=== PATIENT | female | born 2005 | race Caucasian/White ===

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

== ENCOUNTER 2023-02-04 16:06 | Emergency (ER) | payer BC, SELFPAY ==
[2023-02-04 16:20] VITALS: BP 133/77; PULSE 95; RESP 20; TEMP 37; O2SAT 100; BMI 21.9
--- NOTE | 2023-02-04 16:33 | EXP.UTC ---
Discharge Plan Disposition Patient Disposition: Home, Self-Care Condition: Good Prescriptions Prescriptions: No Action norethindrone-e.estradiol-iron [Christiano Fe 12/11 (28)] 1 mg-20 mcg (21)/75 mg (7) tablet 1 tab PO DAILY Caplyta 21 mg capsule 21 mg PO DAILY Qty: 30 2RF doxycycline hyclate [doxycycline hyclate] 100 mg capsule 100 mg PO Q12 10 Days Qty: 20 0RF fluconazole [Diflucan] 150 mg tablet 150 mg PO ONCE Qty: 1 2RF Referrals Follow up/Referrals: Karley Renteria PA [Primary Care Provider] - See instructions Activity Restrictions/Add. Instructions Additional Instructions/Restrictions: Follow up with your retail helper or primary care physician for the results. Call here or return for any issues or worries. GO TO THE ER FOR ANY WORSENING SYMPTOMS OR CONCERNS Clinical Impressions Clinical Impression: Vaginal discharge Instructions Patient Instructions: DI for Vaginal Discharge Discharge ED Provider: Prashant Price [facility] General Stated complaint: Possible BV infection Time Seen by Provider: 02/04/23 16:32 History of Present Illness Provider Complaint: She states that she has an intermittent vaginal discharge with fishy odor of her vagina. Related Data Home Medications Medication Instructions Recorded Confirmed norethindrone 1 mg-ethinyl 1 tab PO DAILY control 01/19/22 08/24/22 estradiol 20 mcg (21)-iron 75 mg (7) tablet (Christiano Fe 12/11 ()) Previous Rx's Medication Instructions Recorded lumateperone 21 mg capsule 21 mg PO DAILY #30 caps 08/24/22 (Caplyta) doxycycline hyclate 100 mg capsule 100 mg PO Q12 10 days #20 caps 11/30/22 fluconazole 150 mg tablet 150 mg PO ONCE #1 tab 11/30/22 (Diflucan) Allergies Allergy/AdvReac Type Severity Reaction Status Date / Time No Known Allergies Allergy Verified 02/04/23 16:41 [facility] Disclaimer: The information contained in this section may have been updated after the patient was seen, as this information can be updated by other users. Medical History Anxiety and depression Bipolar disorder Social History Smoking Status: Never smoker alcohol intake: never substance use type: denies use current occupational status: other Travel in the last 8 weeks: None household members: family housing: house ROS Obtained: Yes All systems reviewed & no additional complaints except as documented Constitutional Constitutional: Denies chills and Denies fever(s) Eyes Eyes: Denies eye discharge ENT Ears, Nose, Mouth, and Throat: Denies dizziness, Denies otalgia and Denies sore throat Cardiovascular Cardiovascular: Denies chest pain Respiratory Respiratory: Denies shortness of breath, Denies chest congestion, Denies cough, Denies stridor and Denies wheezing Gastrointestinal Gastrointestingal: Denies nausea or vomiting Musculoskeletal Musculoskeletal: Reports system reviewed and no additional complaints, except as documented and Denies arthralgias Integumentary/Breasts Skin/Breast: Denies rash Neurologic Neurologic: Denies dizziness and Denies paresthesias Allergic/Immunologic Allergic/Immunologic: Denies wheezing Physical Exam General General appearance: alert and in no apparent distress Head Head exam: atraumatic, normocephalic and normal inspection Eye Eye exam: Present normal appearance, PERRL and EOMI ENT ENT exam: Present normal exam, normal oropharynx, mucous membranes moist, TM's normal bilaterally and normal external ear exam Neck Neck exam: Present normal inspection, full ROM and trachea midline; Absent meningismus or lymphadenopathy Chest Chest inspection: Present normal inspection and symmetric chest wall rise; Absent tenderness Respiratory Respiratory exam: Present normal lung sounds bilaterally; Absent respiratory distress Cardiovascular Cardiovascular exam: Present re
[2023-02-04 17:39] VITALS: BP 133/77; PULSE 95; RESP 20; TEMP 37; O2SAT 100
[2023-02-07 09:09] LABS: Neisseria gonorrhoeae, NAA Negative (Negative)
[2023-02-11 23:42] LABS: Trichomonas Vaginalis, NAA NEGATIVE
== END 2023-02-04 17:39 | disposition home or self-care (01) ==
PROVIDERS: Emergency Provider Nurse Practitioner Family; PCP Physician Assistant
DX: N76.0 Acute vaginitis (principal); B95.1 Streptococcus, group B, as the cause of diseases classified elsewhere
CPT/HCPCS: 87070; 87077; 87186; 87205; 87210; 87591; 87661; 99212; 99213; G0463

== ENCOUNTER → 2023-04-07 19:29 | Outpatient (CLI) | payer BC, SELFPAY ==
[2023-04-07 20:20] LABS: Basophils % 0.5 % (0.1-2.0); Eosinophils % 0.4 % (0.1-12.0); Hematocrit 33.9 % (37.0-47.0); Hemoglobin 11.2 g/dL (12.2-16.2); Lymphocytes # 2.6 K/mm3 (0.7-4.5); Lymphocytes % 36.7 % (10-50); Mean Corpuscular Hemoglobin 31.4 pg (27.0-31.2); Mean Platelet Volume 10.2 fl (7.4-10.4); Monocytes # 0.4 K/mm3 (0.1-1.0); Monocytes % 5.7 % (1.7-9.3); Neutrophils # 3.9 K/mm3 (1.8-7.8); Neutrophils % 56.6 % (37.0-80.0); Platelet Count 317 K/mm3 (142-424); Red Blood Count 3.57 M/mm3 (4.20-5.40); Red Cell Distribution Width 12.7 % (11.5-17.5)
[2023-04-07 20:53] LABS: Erythrocyte Sedimentation Rate 15 mm/hr (0-20)
[2023-04-07 21:57] LABS: Alanine Aminotransferase 17 U/L (12-78); Albumin Level 4.1 g/dl (3.5-5.0); Albumin/Globulin Ratio 1.6 (1.1-1.8); Alkaline Phosphatase 65 U/L (38-126); Anion Gap 16.7 mEq/L (5-15); Aspartate Amino Transferase 25 U/L (14-36); Bilirubin,Total 0.3 mg/dl (0.2-1.3); Blood Urea Nitrogen 12 mg/dl (7-17); Carbon Dioxide 22 mmol/L (22.0-30.0); Chloride 104 mmol/L (98-107); Estimated Glomerular Filt Rate 127 ml/min (>60); GFR (African American) 154 ML/MIN (>60); Globulin 2.5 g/dL (1.3-3.2); Glucose 99 mg/dl (74-100); Potassium 3.7 mmoL/L (3.5-5.1); Sodium 139 mmol/L (136-145); Total Protein,Serum 6.6 g/dl (6.3-8.2)
[2023-04-07 22:03] LABS: C-Reactive Protein 1.2 mg/L (0-4)
[2023-04-07 22:14] LABS: 25-OH Vitamin D, Total 50.4 ng/mL (30-100)
[2023-04-07 22:49] LABS: Vitamin B12 279 pg/mL (239-931)
[2023-04-09 10:58] LABS: Iron 38 ug/dL (37-170)
[2023-04-09 11:07] LABS: Total Iron Binding Capacity 418 ug/dL (265-497)
[2023-04-09 11:12] LABS: RA Latex Turbid. <10.0 IU/mL (<14.0)
[2023-04-09 11:34] LABS: Ferritin 5.66 ng/ml (6.24-137)
[2023-04-09 15:04] LABS: Anti-Cyclic Citrullinated Pept 5 units (0-19)
[2023-04-09 16:14] LABS: Anti-Centromere B Antibodies 0.3 AI (0.0-0.9); Anti-DNA (DS) Ab Qn <1 IU/mL (0-9); Anti-Jo-1 <0.2 AI (0.0-0.9); Anti-Smith Antibody <0.2 AI (0.0-0.9); Antichromatin Antibodies <0.2 AI (0.0-0.9); Antiscleroderma-70 Antibodies <0.2 AI (0.0-0.9); RNP Antibodies <0.2 AI (0.0-0.9); Sjogren's Anti-SS-A <0.2 AI (0.0-0.9); Sjogren's Anti-SS-B <0.2 AI (0.0-0.9)
[2023-04-15 10:36] LABS: HLA-B27 Positive (.)
== END ==
PROVIDERS: PCP Physician Assistant; Visit Provider Physician Assistant
DX: M25.50 Pain in unspecified joint (principal); D64.9 Anemia, unspecified
CPT/HCPCS: 80053; 82306; 82607; 82728; 83540; 83550; 84443; 85025; 85651; 86140; 86200; 86225; 86235; 86431; 86812

== ENCOUNTER → 2023-04-16 15:48 | Outpatient (CLI) | payer BC, SELFPAY ==
--- NOTE | 2023-04-16 15:53 | XR_ITS ---
FINAL REPORT CLINICAL HISTORY: pelvic pain, pt has FINDINGS: SINGLE VIEW PELVIS: A single view of the pelvis was obtained. There is no acute fracture or dislocation. Vizualized joint spaces are normally aligned. Soft tissues are unremarkable. IMPRESSION: No acute bony abnormality. Reviewed, Interpreted and Dictated by Manuel Meléndez III, MD Transcribed by Raven Johnson Authenticated and [facility]
== END ==
PROVIDERS: PCP Physician Assistant; Visit Provider Physician Assistant
DX: M25.50 Pain in unspecified joint (principal); R10.2 Pelvic and perineal pain
CPT/HCPCS: 72170

== ENCOUNTER 2023-06-09 17:28 | Emergency (ER) | payer BC, SELFPAY ==
[2023-06-09 17:29] VITALS: BP 119/81; PULSE 104; RESP 18; TEMP 36.9; O2SAT 100; BMI 21.2
--- NOTE | 2023-06-09 17:35 | EXP.UTC ---
Discharge Plan Disposition Patient Disposition: Home, Self-Care Condition: Good Prescriptions Prescriptions: New azithromycin [Zithromax] 250 mg tablet 250 mg PO UD DOSE PK Qty: 6 0RF Rx Instructions: Take two (2) tablets today, then one (1) tablet days #2 thru #5 methylprednisolone 4 mg Tablets,Dose Pack 4 mg PO DIRECTED Qty: 21 0RF [id number]-[id number] [Bromfed DM] 2-30-10 mg/5 mL Syrup 5 ml PO Q6H PRN (Reason: Cough) Qty: 240 0RF No Action etonogestrel-ethinyl estradiol [EluRyng] 0.12-0.015 mg/24 hr ring vaginal cyanocobalamin (vitamin B-12) 5,000 mcg tablet,disintegrating 5,000 mcg PO DAILY Qty: 90 3RF Slow Release Iron 142 mg (45 mg iron) tablet extended release See Rx Instructions .ROUTE .COMPLEX Qty: 30 0RF Dose Instruction: Take 1 tablet by mouth once daily Rx Instructions: Take 1 tablet by mouth once daily Referrals Follow up/Referrals: Karley Renteria PA [Primary Care Provider] - See instructions Activity Restrictions/Add. Instructions Additional Instructions/Restrictions: Drink plenty of fluids. Take tylenol or ibuprofen for pain or fever. Take the medications as directed. Follow up with your regular doctor. GO TO THE ER FOR ANY WORSENING SYMPTOMS Clinical Impressions Clinical Impression: Sinusitis, Otitis media Stand Alone Forms Stand Alone Forms: Work/School Release Instructions Patient Instructions: Middle Ear Infection, DI for Sinusitis Discharge ED Provider: Prashant Price [facility] [place] General Stated complaint: cough,congestion Time Seen by Provider: 06/09/23 17:36 History of Present Illness Provider Complaint: She c/o sore throat, sinus congestion and ear pain for the past 3 days. Related Data Home Medications Medication Instructions Recorded Confirmed etonogestrel 0.12 mg-ethinyl vag ring vaginal 04/07/23 04/07/23 estradiol 0.015 mg/24 hr vaginal ring (EluRyng) Previous Rx's Medication Instructions Recorded cyanocobalamin (vitamin B-12) 5,000 mcg PO DAILY #90 tabs 04/12/23 5,000 mcg disintegrating tablet ferrous sulfate 142 mg (45 mg See Rx Instructions .Route 05/06/23 iron) tablet,extended release .COMPLEX #30 tabs (Slow Release Iron) azithromycin 250 mg tablet 250 mg PO UD DOSE PK #6 tabs 06/09/23 (Zithromax) emnxrswsttbzstx-vmzuuxrynnhhbjo-[id number] 5 ml PO Q6H PRN Cough #240 mL 06/09/23 2 mg-30 mg-10 mg/5 mL oral syrup (Bromfed DM) methylprednisolone 4 mg tablets in 4 mg PO DIRECTED #21 tabs 06/09/23 a dose pack Allergies Allergy/AdvReac Type Severity Reaction Status Date / Time No Known Allergies Allergy Verified 04/07/23 14:36 [facility] Disclaimer: The information contained in this section may have been updated after the patient was seen, as this information can be updated by other users. Medical History Anxiety and depression Bipolar disorder Social History Smoking Status: Never smoker alcohol intake: never substance use type: denies use current occupational status: other Travel in the last 8 weeks: None household members: family housing: house ROS Obtained: Yes All systems reviewed & no additional complaints except as documented Constitutional Constitutional: Reports chills and Reports fever(s) Eyes Eyes: Denies eye discharge ENT Ears, Nose, Mouth, and Throat: Reports as per HPI Cardiovascular Cardiovascular: Denies chest pain Respiratory Respiratory: Denies chest congestion and Reports cough Gastrointestinal Gastrointestingal: Reports nausea; Denies abdominal pain, constipation, cramping, diarrhea or vomiting Musculoskeletal Musculoskeletal: Denies arthralgias Integumentary/Breasts Skin/Breast: Denies rash Neurologic Neurologic: Denies paresthesias Physical Exam General General appearance: alert and in no apparent d
[2023-06-09 18:04] VITALS: BP 119/81; PULSE 104; RESP 18; TEMP 36.9; O2SAT 100
== END 2023-06-09 18:07 | disposition home or self-care (01) ==
PROVIDERS: Emergency Provider Nurse Practitioner Family; PCP Physician Assistant
DX: J01.90 Acute sinusitis, unspecified (principal); H66.93 Otitis media, unspecified, bilateral; F41.9 Anxiety disorder, unspecified; F31.9 Bipolar disorder, unspecified
CPT/HCPCS: 99212; 99214; G0463

== ENCOUNTER 2024-02-06 16:49 | Emergency (ER) | payer BC, SELFPAY ==
[2024-02-06 18:52] VITALS: BP 0/0; PULSE 0; RESP 0; TEMP -17.7; TEMP 0
== END 2024-02-06 18:54 | disposition left against medical advice (07) ==
PROVIDERS: Emergency Provider Nurse Practitioner; PCP Physician Assistant
DX: Z53.21 Procedure and treatment not carried out due to patient leaving prior to being seen by health care provider (principal)

== ENCOUNTER 2024-02-07 08:26 | Emergency (ER) | payer BC, SELFPAY ==
[2024-02-07 08:36] VITALS: BMI 23.2
[2024-02-07] MEDS: TUBERCULIN 5 UNITS/0.1ML 1ML VIAL ID (08:37)
[2024-02-07 08:40] VITALS: BP 130/73; PULSE 66; RESP 18; TEMP 36.8; O2SAT 100; BMI 23.2
[2024-02-07 08:48] LABS: Apearance,Urine Cloudy (Clear); Blood, Urine Trace (Negative); Color,Urine Dark Yellow (Yellow); Glucose,Urine (UA) Negative (Negative); Ketones,Urine Negative (Negative); PH,Urine 5.5 (5.0-8.5); Protein,Urine Negative (Negative)
[2024-02-07 08:49] LABS: Bilirubin,Urine Negative (Negative); UTC Leukocyte Esterase,Urine Trace (Negative); UTC Nitrate,Urine Negative (Negative); Urobilinogen,Urine 0.2 EU/dl (0.2)
--- NOTE | 2024-02-07 08:51 | EXP.UTC ---
Discharge Plan Disposition Patient Disposition: Home, Self-Care Condition: Good Prescriptions Prescriptions: New phenazopyridine [Pyridium] 200 mg tablet 200 mg PO Q8H 2 Days Qty: 6 0RF ondansetron 4 mg Tablet,Disintegrating 4 mg PO Q8H PRN (Reason: Nausea) Qty: 8 0RF cefdinir 300 mg capsule 300 mg PO BID PRN (Reason: uti) 7 Days Qty: 14 0RF No Action etonogestrel-ethinyl estradiol [EluRyng] 0.12-0.015 mg/24 hr ring 1 vag ring vaginal DAILY fluticasone propionate [Flonase Allergy Relief] 50 mcg/actuation spray,suspension 1 spray intranasal BID Qty: 16 0RF Rx Instructions: administer into each nostril cyanocobalamin (vitamin B-12) 5,000 mcg tablet,disintegrating 5,000 mcg PO DAILY Qty: 90 3RF Slow Release Iron 142 mg (45 mg iron) tablet extended release See Rx Instructions .ROUTE .COMPLEX Qty: 30 0RF Dose Instruction: Take 1 tablet by mouth once daily Rx Instructions: Take 1 tablet by mouth once daily Referrals Follow up/Referrals: Karley Renteria PA [Primary Care Provider] - See instructions Activity Restrictions/Add. Instructions Additional Instructions/Restrictions: Drink plenty of fluids. Take tylenol or ibuprofen for pain or fever. Take the medications as directed. Follow up with your regular doctor. GO TO THE ER FOR ANY WORSENING SYMPTOMS The pyridium will make your urine turn orange, this is an expected side effect. It will stain your clothes if it comes into contact with them. We will culture the urine. That will tell what bacteria is causing your infection and which antibiotics will treat it best. Sometimes the first antibiotic we prescribe turns out to not work against different bacteria. So, make sure you follow up within 3 days if you are not getting better. Clinical Impressions Clinical Impression: UTI (urinary tract infection) Instructions Patient Instructions: Urinary Tract Infection, Urine Culture, DI for Urinary Tract Infection (UTI), Phenazopyridine Discharge ED Provider: Prashant Price [facility] HPI General Stated complaint: Tb test and poss UTI Mode of Arrival: Ambulatory Source of Information: Patient Limitations: No Limitations Time Seen by Provider: 02/07/24 08:51 Description of Symptoms (Recalled from Triage Doc. by RN): Pt's symptoms are urinary frequency, and pelvic pressure. HEENT Symptoms (Recalled from RN notes): Yes Resp Symptoms (Recalled from RN notes): No Skin Symptoms (Recalled from RN notes): No MS Symptoms (Recalled from RN notes): No Functional Status (Recalled from RN notes): n/a History of Present Illness Provider Complaint: She states that for the past 1 day she has has had urinary frequency and dysuria. Related Data Home Medications Medication Instructions Recorded Confirmed etonogestrel 0.12 mg-ethinyl 1 vag ring vaginal DAILY 04/07/23 02/07/24 estradiol 0.015 mg/24 hr vaginal ring (EluRyng) Previous Rx's Medication Instructions Recorded cyanocobalamin (vitamin B-12) 5,000 mcg PO DAILY #90 tabs 04/12/23 5,000 mcg disintegrating tablet ferrous sulfate 142 mg (45 mg See Rx Instructions .Route 05/06/23 iron) tablet,extended release .COMPLEX #30 tabs (Slow Release Iron) fluticasone propionate 50 1 spray intranasal BID #16 grams 11/25/23 mcg/actuation nasal spray,suspension (Flonase Allergy Relief) cefdinir 300 mg capsule 300 mg PO BID PRN uti 7 days #14 02/07/24 caps ondansetron 4 mg disintegrating 4 mg PO Q8H PRN Nausea #8 tabs 02/07/24 tablet phenazopyridine 200 mg tablet 200 mg PO Q8H 2 days #6 tabs 02/07/24 (Pyridium) Allergies Allergy/AdvReac Type Severity Reaction Status Date / Time No Known Allergies Allergy Verified 02/07/24 08:47 Worker's Comp Is this a Worker's Comp case?: No [facility] Disclaimer: The information contained in this section may have been updated after the patient was seen, as this information can be updated by other users. Medical History (Updated 02/07/24 @ 08:56 by Prashant Price APRN) Bipolar disorder Anxiety and depression Surgical History No significant past surgical history Family History Other No significant family history Social History Smoking Status: Never smoker alcohol intake: never substance use type: denies use current occupational status: other Travel in the last 8 weeks: None household members: family housing: house ROS Obtained: Yes All systems reviewed & no additional complaints except as documented Constitutional Constitutional: Reports system reviewed and no additional complaints, except as documented, Denies chills and Denies fever(s) Eyes Eyes: Denies eye discharge ENT Ears, Nose, Mouth, and Throat: Denies dysphagia, Denies sore throat and Denies throat swelling Cardiovascular Cardiovascular: Denies chest pain and Denies dyspnea Respiratory Respiratory: Denies chest congestion, Denies cough and Denies dyspnea Gastrointestinal Gastrointestingal: Denies abdominal pain, constipation, diarrhea, dysphagia, nausea or vomiting Genitourinary Female Genitourinary: Reports as per HPI, Reports dysuria, Reports urinary frequency, Denies urinary incontinence, Reports urinary hesitancy and Reports urinary urgency Musculoskeletal Musculoskeletal: Denies arthralgias and Reports back pain Integumentary/Breasts Skin/Breast: Denies rash Neurologic Neurologic: Denies paresthesias Allergic/Immunologic Allergic/Immunologic: Denies throat swelling Physical Exam General General appearance: alert and in no apparent distress Head Head exam: atraumatic and normocephalic Eye Eye exam: Present normal appearance, PERRL and EOMI ENT ENT exam: Present normal exam, mucous membranes moist, TM's normal bilaterally and normal external ear exam Neck Neck exam: Present normal inspection, full ROM and trachea midline; Absent tenderness, meningismus or lymphadenopathy Chest Chest inspection: Present normal inspection and symmetric chest wall rise; Absent tenderness Respiratory Respiratory exam: Present normal lung sounds bilaterally; Absent respiratory distress, wheezes or stridor Cardiovascular Cardiovascular exam: Present regular rate, normal rhythm and normal heart sounds Abdominal Exam Abdominal exam: Present soft and normal bowel sounds; Absent distention, tenderness, guarding, rebound, rigidity, incision, psoas sign, obturator sign, heel tap sign, Shanks's sign, Rovsing's sign or tenderness at McBurney's Point Extremities Exam Extremities exam: Present normal inspection, full ROM and normal capillary refill; Absent tenderness, edema, joint swelling, calf tenderness or cyanosis Back Exam Back exam: Present normal inspection and full ROM; Absent tenderness, CVA tenderness (R) or CVA tenderness (L) Neurological Exam Neurological exam: Present alert, oriented X3 and normal gait Psychiatric Psychiatric exam: Present normal affect and normal mood Skin Skin exam: Present warm, dry, intact and normal color Lymphatic Lymphatic Findings: no adenopathy Medical Decision Making Medical Records Medical records reviewed: No I reviewed the patient's medical records. Oniel Inquiry Pt receiving controlled substance: No Vital Signs: 02/07/24 08:40 Temperature 98.3 F Temperature Source Oral Pulse Rate [Right Radial] 66 Respiratory Rate 18 Blood Pressure [Right Arm] 130/73 Blood Pressure Mean [Right Arm] 92 Blood Pressure Source [Right Arm] Automatic Cuff Blood Pressure Position [Right Arm] Sitting 02 Sat by Pulse Oximetry 100 Oxygen Delivery Method Room Air Lab Data Lab results reviewed: Yes I reviewed the patient's lab results. Lab Results 02/07/24 08:37: Urine Color Dark yellow, Urine Appearance Cloudy, Urine pH 5.5, Ur Specific [place] 1.030, Urine Protein Negative, Urine Glucose (UA) Negative, Urine Ketones Negative, Urine Blood Trace, Urine Nitrate Negative, Urine Bilirubin Negative, Urine Urobilinogen 0.2, Ur Leukocyte Esterase Trace Orders (Tests/Meds): ED MEDICATIONS Discontinued Medications Generic Name Dose Route Start Last Admin Trade Name Freq PRN Reason Stop Dose Admin Tuberculin PPD 5 units 02/07/24 08:37 02/07/24 08:37 Tuberculin 5 Units/0.1ml 1ml Vial ID 02/07/24 08:38 5 units ONCE ONE Administration ORDERS Category Date Time Status Urine Culture Stat Micro 02/07/24 08:40 Received
[2024-02-07 09:00] VITALS: BP 130/73; PULSE 66; RESP 18; TEMP 36.8; O2SAT 100
== END 2024-02-07 09:00 | disposition home or self-care (01) ==
PROVIDERS: Emergency Provider Nurse Practitioner Family; PCP Physician Assistant
DX: N39.0 Urinary tract infection, site not specified (principal); R10.2 Pelvic and perineal pain; R35.0 Frequency of micturition; Z11.1 Encounter for screening for respiratory tuberculosis; F31.9 Bipolar disorder, unspecified; F41.9 Anxiety disorder, unspecified; M54.9 Dorsalgia, unspecified
CPT/HCPCS: 81003; 86580; 87086; 99212; 99214; G0463

== ENCOUNTER 2024-08-04 11:52 | Emergency (ER) | payer BC, SELFPAY ==
[2024-08-04 12:06] VITALS: BP 124/73; PULSE 85; RESP 20; TEMP 36.7; O2SAT 100; BMI 22.5
--- NOTE | 2024-08-04 12:12 | EXP.UTC ---
Discharge Plan Disposition Patient Disposition: Home, Self-Care Condition: Good Prescriptions Prescriptions: No Action etonogestrel-ethinyl estradiol [EluRyng] 0.12-0.015 mg/24 hr ring 1 vag ring vaginal DAILY Qty: 3 3RF Referrals Follow up/Referrals: Karley Renteria PA [Primary Care Provider] - See instructions Activity Restrictions/Add. Instructions Additional Instructions/Restrictions: Drink extra fluids with and between meals. If you have difficulty drinking, try very small amounts of water or suck on ice chips. ? Avoid fruit juices, as these do not replace minerals and can actually increase diarrhea. ? Children and adults can use sports drinks to replenish electrolytes. Younger children and infants should use products formulated for children, like oral rehydration solutions. ? Eat food in small amounts and let your stomach recover. ? Get lots of rest. You may feel tired or weak. ? No greasy or fried foods for the next 24-48 hours BRAT diet Bananas Rice Apples and Tynd[place] ? Make sure to drink plenty of liquids ? Return if needed ? Straight to ER if any life threatening symptoms ? You was given an outpatient order for diarrhea panel, please collect specimen and bring back to outpatient lab then call back to the [facility] or follow up with family doctor for results ? Follow up with family doctor in the next 48-72 hours if no improvement or any worsening of symptoms Clinical Impressions Clinical Impression: Diarrhea Qualifiers: Diarrhea type: unspecified type Qualified Code(s): R19.7 - Diarrhea, unspecified Instructions Patient Instructions: Diarrhea Print Language Print Language: Ecuadorean Discharge ED [place] Uribe [facility] [place] General Stated complaint: diarrhea Mode of Arrival: Ambulatory Source of Information: Patient Time Seen by Provider: 08/04/24 12:12 Description of Symptoms (Recalled from Triage Doc. by RN): hx of watery diarrhae x6 days took OTC DRUGS WITH NO HELP USUALLY AFTER EATING NO HX OF RECENT ABX HEENT Symptoms (Recalled from RN notes): No Resp Symptoms (Recalled from RN notes): No Skin Symptoms (Recalled from RN notes): No MS Symptoms (Recalled from RN notes): No Functional Status (Recalled from RN notes): WNL History of Present Illness Provider Complaint: Patient states that she has been having watery diarrhea for about 6 days States that she took some over the counter Immodium and it helped for a day and then the diarrhea is back States that she is not sure if she may have been exposed to something or not Related Data Previous Rx's ?Medication ?Instructions ?Recorded etonogestrel 0.12 mg-ethinyl 1 vag ring vaginal DAILY #3 ea 03/10/24 estradiol 0.015 mg/24 hr vaginal ring (EluRyng) Allergies Allergy/AdvReac Type Severity Reaction Status Date / Time No Known Allergies Allergy Verified 06/26/24 13:08 Worker's Comp Is this a Worker's Comp case?: No [facility] Disclaimer: The information contained in this section may have been updated after the patient was seen, as this information can be updated by other users. Medical History Family history of breast cancer maternal grandmother Bipolar disorder Anxiety and depression Surgical History H/O anterior cruciate ligament surgery Family History Grandmother Cancer breast Mother Cancer ovarian Other No significant family history Social History Smoking Status: Never smoker alcohol intake: current alcohol intake frequency: holidays/special occasions only substance use type: denies use current occupational status: other Travel in the last 8 weeks: None household members: family housing: house ROS Obtained: Yes All systems reviewed & no additional complaints except as documented and Yes Systems reviewed as appropriate & no additional complaints except as documented Constitutional Constitutional: Reports system reviewed and no additional complaints, except as documented, Reports as per HPI, Denies body ache, Denies chills and Denies fever(s) ENT Ears, Nose, Mouth, and Throat: Reports system reviewed and no additional complaints, except as documented and Reports as per HPI Cardiovascular Cardiovascular: Reports system reviewed and no additional complaints, except as documented and Reports as per HPI Respiratory Respiratory: Reports system reviewed and no additional complaints, except as documented and Reports as per HPI Gastrointestinal Gastrointestingal: Reports system reviewed and no additional complaints, except as documented, as per HPI, cramping and diarrhea; Denies abdominal pain, nausea or vomiting Physical Exam General General appearance: alert and in no apparent distress ENT ENT exam: Present mucous membranes moist Respiratory Respiratory exam: Present normal lung sounds bilaterally; Absent respiratory distress or wheezes Cardiovascular Cardiovascular exam: Present regular rate, normal rhythm and normal heart sounds Abdominal Exam Abdominal exam: Present soft and hyperactive bowel sounds; Absent distention, tenderness, guarding or rebound Neurological Exam Neurological exam: Present alert, oriented X3 and normal gait Medical Decision Making Oniel Inquiry Pt receiving controlled substance: No Oniel was queried for this patient: No Vital Signs: 08/04/24 12:06 Temperature 98.0 F Temperature Source Oral Pulse Rate [Left Brachial] 85 Respiratory Rate 20 Blood Pressure [Left Arm] 124/73 Blood Pressure Mean [Left Arm] 90 02 Sat by Pulse Oximetry 100
[2024-08-04 12:25] VITALS: BP 124/73; PULSE 85; RESP 20; TEMP 36.6
== END 2024-08-04 12:26 | disposition home or self-care (01) ==
PROVIDERS: Emergency Provider Nurse Practitioner; PCP Physician Assistant
DX: R19.7 Diarrhea, unspecified (principal)
CPT/HCPCS: 99212; 99213; G0463

== ENCOUNTER 2024-12-28 11:30 | Emergency (ER) | payer BC, OTHER, SELFPAY ==
[2024-12-28 12:49] VITALS: BP 128/88; PULSE 76; RESP 19; TEMP 37.1; O2SAT 98; BMI 22.6
--- NOTE | 2024-12-28 12:55 | ED_ITS ---
Discharge Plan Disposition Patient Disposition: Home, Self-Care Condition: Good Prescriptions Prescriptions: New fluconazole 150 mg tablet 150 mg PO Q3D Qty: 2 0RF Rx Instructions: take one tablet now and may repeat in 72 hrs No Action etonogestrel-ethinyl estradiol [EluRyng] 0.12-0.015 mg/24 hr ring 1 vag ring vaginal DAILY Qty: 3 3RF Referrals Follow up/Referrals: Karley Renteria PA [Primary Care Provider] - See instructions Activity Restrictions/Add. Instructions Additional Instructions/Restrictions: Take medication as prescribed No bubble bathes Follow up with your Family Doctor or OBGYN if symptoms continue Clinical Impressions Clinical Impression: Vaginal yeast infection Instructions Patient Instructions: Fluconazole, DI for Vaginal Yeast Infection Print Language Print Language: Samoan Discharge ED Provider: Cary Uribe [facility] General Stated complaint: poss yeast infection Mode of Arrival: Ambulatory Source of Information: Patient Limitations: No Limitations Time Seen by Provider: 12/28/24 12:55 Description of Symptoms (Recalled from Triage Doc. by RN): YEAST INFECTION HEENT Symptoms (Recalled from RN notes): No Resp Symptoms (Recalled from RN notes): No Skin Symptoms (Recalled from RN notes): No MS Symptoms (Recalled from RN notes): No Functional Status (Recalled from RN notes): NA History of Present Illness Provider Complaint: Patient states that she thinks she may have a yeast infection States that she is having burning like sensation in her vaginal area like she has had before with yeast infection so she came in to get something Related Data Previous Rx's ?Medication ?Instructions ?Recorded etonogestrel 0.12 mg-ethinyl 1 vag ring vaginal DAILY #3 ea 03/10/24 estradiol 0.015 mg/24 hr vaginal ring (EluRyng) fluconazole 150 mg tablet 150 mg PO Q3D 2 doses #2 tabs 12/28/24 Allergies Allergy/AdvReac Type Severity Reaction Status Date / Time No Known Allergies Allergy Verified 06/26/24 13:08 Worker's Comp Is this a Worker's Comp case?: No [facility] Disclaimer: The information contained in this section may have been updated after the patient was seen, as this information can be updated by other users. Medical History Family history of breast cancer maternal grandmother Bipolar disorder Anxiety and depression Surgical History H/O anterior cruciate ligament surgery Family History Grandmother Cancer breast Mother Cancer ovarian Other No significant family history Social History Smoking Status: Never smoker alcohol intake: current alcohol intake frequency: holidays/special occasions only substance use type: denies use current occupational status: other Travel in the last 8 weeks: None household members: family housing: house Have you lived/traveled outside [place] in past 30 days?: No Contact w/someone who lives/traveled outside [place] past 30 days?: No Exposure to someone with infectious disease in past 14 days?: No Do you have a fever (greater than 100.4 F or 38 C)?: No Have you tested positive for COVID-19: No Exposed to someone with COVID-19 in past 14 days?: No Do you have a sore throat?: No Do you have a cough?: No Do you have any weakness?: No Do you have any diarrhea?: No Are you experiencing any unusual bleeding?: No Do you have any muscle aches/pain?: No Do you have any abdominal pain?: No Are you experiencing loss of taste or smell?: No ROS Obtained: Yes All systems reviewed & no additional complaints except as documented and Yes Systems reviewed as appropriate & no additional complaints except as documented Constitutional Constitutional: Reports system reviewed and no additional complaints, except as documented and Reports as per HPI ENT Ears, Nose, Mouth, and Throat: Reports system reviewed and no additional complaints, except as documented and Reports as per HPI Cardiovascular Cardiovascular: Reports system reviewed and no additional complaints, except as documented and Reports as per HPI Respiratory Respiratory: Reports system reviewed and no additional complaints, except as documented and Reports as per HPI Gastrointestinal Gastrointestingal: Reports system reviewed and no additional complaints, except as documented and as per HPI; Denies abdominal pain Genitourinary Female Genitourinary: Reports system reviewed and no additional complaints, except as documented, Reports as per HPI, Reports vaginal pruritus and Reports other (burning and irritation like she has had before with yeast infection) Physical Exam General General appearance: alert and in no apparent distress ENT ENT exam: Present normal exam, normal oropharynx and mucous membranes dry Respiratory Respiratory exam: Present normal lung sounds bilaterally; Absent respiratory distress or wheezes Cardiovascular Cardiovascular exam: Present regular rate, normal rhythm and normal heart sounds Abdominal Exam Abdominal exam: Present soft and normal bowel sounds; Absent distention or tenderness External exam: Present other (deferred, burning and irritation ) Neurological Exam Neurological exam: Present alert, oriented X3 and normal gait Medical Decision Making Medical Records Screening: Per USPSTF and CDC recommendations, given the prevalence of disease in our region, it is our hospital?s policy to screen for HIV and viral Hepatitis for all patients aged 18 and over and those with ongoing risk factors. Oniel Inquiry Pt receiving controlled substance: No Oniel was queried for this patient: No Vital Signs: 12/28/24 12:49 Temperature 98.7 F Temperature Source Oral Pulse Rate [Left Radial] 76 Respiratory Rate 19 Blood Pressure [Right Arm] 128/88 Blood Pressure Mean [Right Arm] 101 02 Sat by Pulse Oximetry 98
[2024-12-28 13:00] VITALS: BP 128/88; PULSE 76; RESP 19; TEMP 37.1; O2SAT 98
== END 2024-12-28 13:01 | disposition home or self-care (01) ==
PROVIDERS: Emergency Provider Nurse Practitioner; PCP Physician Assistant
DX: B37.31 Acute candidiasis of vulva and vagina (principal)
CPT/HCPCS: 99212; G0381

== ENCOUNTER 2025-01-08 16:00 | Outpatient (CLI) | payer BC, OTHER, SELFPAY ==
[2025-01-08 18:40] LABS: HIV Combo NEGATIVE (Negative)
[2025-01-08 18:48] LABS: Hepatitis C Ab Qual. W/ RFX NEGATIVE (Negative)
[2025-01-09 05:51] LABS: Hepatitis B Surface Antigen Negative (Negative)
[2025-01-09 15:28] LABS: RPR W/RFX Titers Nonreactive (Nonreactive)
== END 2025-01-08 23:59 | disposition home or self-care (01) ==
LOC: LAB 16:02
PROVIDERS: PCP Physician Assistant; Visit Provider Obstetrics & Gynecology
DX: Z72.51 High risk heterosexual behavior (principal)
CPT/HCPCS: 36415; 86592; 86803; 87340; 87389

== ENCOUNTER 2025-03-11 01:14 | Emergency (ER) | payer BC, MEDICAID, SELFPAY ==
[2025-03-11 01:26] VITALS: BP 135/95; PULSE 80; O2SAT 100
[2025-03-11 01:27] VITALS: BP 137/99; PULSE 90; O2SAT 100
[2025-03-11 01:36] VITALS: BP 137/99; PULSE 85; RESP 14; TEMP 36.9; O2SAT 100; BMI 22.1
[2025-03-11 01:44] LABS: Basophils # 0.1 K/mm3 (0-0.2); Basophils % 0.6 % (0.1-2.0); Eosinophils % 0.3 % (0.1-12.0); Hematocrit 37.2 % (37.0-47.0); Hemoglobin 11.9 g/dL (12.2-16.2); Lymphocytes # 3.1 K/mm3 (0.7-4.5); Lymphocytes % 40.3 % (10-50); Mean Corpuscular Hemoglobin 29.6 pg (27.0-31.2); Mean Corpuscular Volume 92.5 fl (81-99); Mean Platelet Volume 10.3 fl (7.4-10.4); Monocytes # 0.9 K/mm3 (0.1-1.0); Monocytes % 11.1 % (1.7-9.3); Neutrophils # 3.7 K/mm3 (1.8-7.8); Neutrophils % 47.6 % (37.0-80.0); Nucleated Red Blood Cells # 0 10^3/uL; Nucleated Red Blood Cells % 0 %; Platelet Count 296 K/mm3 (142-424); Red Blood Count 4.02 M/mm3 (4.20-5.40); Red Cell Distribution Width 12.8 % (11.5-17.5); Red Cell Distribution Width-SD 43.6 fL; White Blood Count 7.8 K/mm3 (4.8-10.8)
[2025-03-11 01:47] LABS: Albumin Level 4.4 g/dl (3.5-5.0)
[2025-03-11 01:49] LABS: Alanine Aminotransferase 19 U/L (12-78); Aspartate Amino Transferase 29 U/L (14-36); Bilirubin,Unconjugated 0.3 mg/dL (0.0-1.1); Total Protein,Serum 7.4 g/dl (6.3-8.2)
[2025-03-11 01:50] LABS: Alkaline Phosphatase 70 U/L (38-126); Bilirubin,Indirect 0.3 mg/dL (0.0-0.9); Bilirubin,Total 0.3 mg/dl (0.2-1.3)
[2025-03-11 01:55] LABS: Activated Partial Thrombo Time 25.8 seconds (22.8-30.6); INR 0.93 (0.9-1.1); Prothrombin Time 10.5 seconds (10.1-12.5)
[2025-03-11 01:56] LABS: HIV 1 Ab ND; HIV 2 Ab ND
[2025-03-11 02:04] LABS: Benzodiazepines Screen,Urine Negative ng/ml (<200)
[2025-03-11 02:05] LABS: Amphetamine/Metha Screen,Urine Negative ng/ml (<1000); Barbiturates Screen,Urine Negative ng/ml (<200)
[2025-03-11 02:07] LABS: Opiate Screen,Urine Negative ng/ml (<300); Phencyclidine Screen,Urine Negative ng/ml (<25)
[2025-03-11 02:09] LABS: Cannabinoid Screen,Urine Negative ng/ml (<50); Cocaine Screen,Urine Negative ng/ml (<300)
[2025-03-11 02:10] LABS: Methadone Screen,Urine Negative ng/ml (<300)
[2025-03-11 02:15] VITALS: BP 137/99; PULSE 85; RESP 14; TEMP 36.9; O2SAT 100
[2025-03-11 03:04] LABS: HIV Combo NEGATIVE (Negative)
--- NOTE | 2025-03-11 04:15 | ED_ITS ---
Discharge Plan Disposition Patient Disposition: Home, Self-Care Condition: Good Prescriptions Prescriptions: No Action valacyclovir 1 gram tablet PO etonogestrel-ethinyl estradiol [EluRyng] 0.12-0.015 mg/24 hr ring 1 vag ring vaginal DAILY Qty: 3 3RF Referrals Follow up/Referrals: Karley Renteria PA [Primary Care Provider] - See instructions Activity Restrictions/Add. Instructions Additional Instructions/Restrictions: You were evaluated in the ER and are appropriate for discharge at this time. If you need follow-up, infection control should call. Return to the ER with new, worsening, or otherwise concerning symptoms. Clinical Impressions Clinical Impression: Employee exposure to blood Print Language Print Language: Maltese Discharge ED Provider: Manuel Alejandra General Adult HPI General Chief complaint: Recheck/Abnormal Lab/Rx Stated complaint: patient blood in eye Time Seen by Provider: 03/11/25 01:38 Mode of Arrival: Ambulatory Source of Information: Patient Description of Symptoms (Recalled from ER Triage Doc. by RN): pt reports with a work related exposure, pt was removing an IV when blood splashed into her eye. History of Present Illness HPI narrative: 20-year-old female with history of ankylosing spondylitis not currently on any home daily medications presents to the ER for work related exposure. Patient was removing an IV when blood from the catheter splashed into her eye. She copiously irrigated her eyes with water at the washout station. She presents for postexposure evaluation and labs. No vision changes, eye pain, or abnormal discharge. No other complaints or concerns. 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 Most recent Tdap booster was August 2023, she also had hepatitis B titers in August 2023 which were adequate. She did not require a hep B booster shot for nursing school. Related Data Home Medications ?Medication ?Instructions ?Recorded ?Confirmed valacyclovir 1 gram tablet mg PO 01/08/25 01/08/25 Previous Rx's ?Medication ?Instructions ?Recorded etonogestrel 0.12 mg-ethinyl 1 vag ring vaginal DAILY #3 ea 03/10/24 estradiol 0.015 mg/24 hr vaginal ring (EluRyng) Allergies Allergy/AdvReac Type Severity Reaction Status Date / Time No Known Allergies Allergy Verified 01/08/25 15:20 [facility] Disclaimer: The information contained in this section may have been updated after the patient was seen, as this information can be updated by other users. Medical History (Updated 03/11/25 @ 02:12 by Manuel Alejandra MD) Vaginal discharge Screen for STD (sexually transmitted disease) Family history of breast cancer Bipolar disorder Anxiety and depression Surgical History H/O anterior cruciate ligament surgery Family History Grandmother Cancer breast Mother Cancer ovarian Other No significant family history Social History Smoking Status: Never smoker alcohol intake: current alcohol intake frequency: holidays/special occasions only substance use type: denies use current occupational status: other Travel in the last 8 weeks: None household members: family housing: house Have you lived/traveled outside [place] in past 30 days?: No Contact w/someone who lives/traveled outside [place] past 30 days?: No Exposure to someone with infectious disease in past 14 days?: No Do you have a fever (greater than 100.4 F or 38 C)?: No Have you tested positive for COVID-19: No Exposed to someone with COVID-19 in past 14 days?: No Do you have a sore throat?: No Do you have a cough?: No Do you have any weakness?: No Do you have any diarrhea?: No Are you experiencing any unusual bleeding?: No Do you have any muscle aches/pain?: No Do you have any abdominal pain?: No Are you experiencing loss of taste or smell?: No Other Medical History Have you received the Flu Vaccine for this season: No Have you received the Pneumonia Vaccine: No ROS Obtained: Yes Systems reviewed as appropriate & no additional complaints except as documented Physical Exam General General appearance: alert and in no apparent distress Head Head exam: atraumatic and normocephalic Eye Eye exam: Present PERRL, EOMI and other (Normal-appearing with no abnormalities); Absent conjunctival redness or jaundice ENT ENT exam: Present mucous membranes moist Neck Neck exam: Present normal inspection and full ROM Chest Chest inspection: Present symmetric chest wall rise Respiratory Respiratory exam: Absent respiratory distress or stridor Cardiovascular Cardiovascular exam: Present regular rate and normal rhythm Extremities Exam Extremities exam: Present full ROM Neurological Exam Neurological exam: Present alert, oriented X3 and normal gait; Absent motor sensory deficit Psychiatric Psychiatric exam: Present normal affect and normal mood Skin Skin exam: Present warm and dry Medical Decision Making Medical Records Medical records reviewed: Yes I reviewed the patient's medical records. Screening: Per USPSTF and CDC recommendations, given the prevalence of disease in our region, it is our hospital?s policy to screen for HIV and viral Hepatitis for all patients aged 18 and over and those with ongoing risk factors. MR Comment: No history of HIV or hep C, patient had RPR, hep B antigen, HCV AB, and HIV testing in December of this year all of which were negative. Oniel Inquiry Pt receiving controlled substance: No Vital Signs: 03/11/25 01:26 03/11/25 01:27 03/11/25 01:36 Temperature 98.4 F Temperature Source Oral Pulse Rate 80 90 Pulse Rate [Right] 85 Respiratory Rate 14 Blood Pressure 135/95 H 137/99 H Blood Pressure [Right Arm] 137/99 H Blood Pressure Mean [Right Arm] 111 02 Sat by Pulse Oximetry 100 100 100 Oxygen Delivery Method Room Air 03/11/25 02:15 Temperature 98.4 F Temperature Source Pulse Rate 85 Pulse Rate [Right] Respiratory Rate 14 Blood Pressure 137/99 H Blood Pressure [Right Arm] Blood Pressure Mean [Right Arm] 02 Sat by Pulse Oximetry Oxygen Delivery Method Room Air Lab Data Lab Results 03/11/25 01:30: WBC 7.8, RBC 4.02 L, Hgb 11.9 L, Hct 37.2, MCV 92.5, MCH 29.6, MCHC 32.0, RDW 12.8, Plt Count 296, MPV 10.3, Neut % (Auto) 47.6, Lymph % (Auto) 40.3, [place] % (Auto) 11.1 H, Eos % (Auto) 0.3, Baso % (Auto) 0.6, Neut # (Auto) 3.7, Lymph # (Auto) 3.1, [place] # (Auto) 0.9, Eos # (Auto) 0.0, Baso # (Auto) 0.1, PT 10.5, INR 0.93, APTT 25.8, Total Bilirubin 0.3, Direct Bilirubin 0.0, Conjugated Bilirubin 0.0, Indirect Bilirubin 0.3, Unconjugated Bilirubin 0.3, AST 29, ALT 19, Alkaline Phosphatase 70, Total Protein 7.4, Albumin 4.4, HIV Ag/Ab Combo Qual Negative 03/11/25 01:44: Urine Opiates Screen Negative, Urine Methadone Screen Negative, Ur Barbituates Screen Negative, Ur Phencyclidine Scrn Negative, Ur Amphetamines Screen Negative, U Benzodiazepines Scrn Negative, Urine Cocaine Screen Negative, U Marijuana (THC) Screen Negative 03/11/25 01:30 Orders (Tests/Meds): ORDERS Category Date Time Status Complete Blood Count Auto Diff Stat Lab 03/11/25 01:30 Completed HBsAg Screen Stat Lab 03/11/25 01:30 Received HIV Combo Stat Lab 03/11/25 01:30 Completed Hepatitis B Surf Ab Quant Stat Lab 03/11/25 01:30 Received Hepatitis C Antibody Stat Lab 03/11/25 01:30 Received Liver Panel Stat Lab 03/11/25 01:30 Completed PT/PTT Stat Lab 03/11/25 01:30 Completed UDS [Drug Screen,Urine] Stat Lab 03/11/25 01:44 Completed Medical Decision Narrative: In summary, 20-year-old female presents to the ER for concerns of blood splashed into the eye while removing a patient's IV. Eye has already been adequately irrigated. Exam is benign. Employee exposure protocol was followed. All labs including CBC, coags, liver studies, UDS, hepatitis B, hepatitis C, and HIV studies have all been ordered. Appropriate labs from source patient have also been ordered. Labs reviewed demonstrate no leukocytosis, mild nonactionable anemia, normal coags, nonactionable liver studies, UDS negative. Patient is appropriate for discharge. Other labs will take time to result and multiple of them are send outs. I have spoken with Gillian in the lab who is ordering the appropriate send out HIV panel for both this patient and the source patient since I am unable to order that panel myself. Due to very low risk for HIV exposure in this setting, postexposure prophylaxis is not being offered at this time. Source patient does not have a history of HIV. This patient also is up-to-date on Tdap and does not require hepatitis B vaccine in the setting. She is appropriate for discharge. Infection control will contact the patient if needed. Patient was given instructions on symptomatic monitoring, follow up instructions, and return precautions for the emergency department. Patient indicated understanding and was discharged in stable condition. Critical Care Critical Care Time Critical Care Time: No
[2025-03-12 11:21] LABS: HIV Screen 4th Generation wRfx Non Reactive (Non Reactive); Hepatitis B Surf Ab Quant 84.5 mIU/mL (Immunity>10); Hepatitis B Surface Antigen Negative (Negative); Hepatitis C Antibody Non Reactive (Non Reactive)
== END 2025-03-11 02:22 | disposition home or self-care (01) ==
PROVIDERS: Emergency Provider Emergency Medicine; PCP Physician Assistant
DX: Z77.21 Contact with and (suspected) exposure to potentially hazardous body fluids (principal)
CPT/HCPCS: 80076; 80307; 85025; 85610; 85730; 86703; 86706; 87340; 87380; 87389; 99283; G0432